=== PATIENT | male | born 1945 | race Caucasian/White ===

== ENCOUNTER 2021-06-02 09:05 | Outpatient (REF) | payer MEDICARE, SELFPAY ==
--- NOTE | ~2021-06-02 | CT_ITS ---
EXAMINATION: CT SINUS WITHOUT CONTRAST CLINICAL INFORMATION: Deviated nasal septum. COMPARISON: CT sinus exam 08/05/2018. TECHNIQUE: 1.5 minutes thin axial and reformatted 2.0 mm thin sagittal and coronal images of sinuses were obtained. This CT examination was performed using dose optimization techniques as appropriate, variously including the following: *Automated exposure control *Adjustment of mA and/or kV according to patient size (this includes techniques or standardized protocols for targeted exams where dose is matched to indication/reason for exam; i.e. extremities or head) *Use of iterative reconstruction technique DLP: 97 mGy-cm. FINDINGS: FRONTAL SINUSES AND DRAINAGE PATHWAYS: There is diffuse mucoperiosteal thickening bilateral frontal sinuses. The drainage pathways are obstructed from mucosal periosteal thickening. MAXILLARY SINUSES AND DRAINAGE PATHWAYS: There is diffuse mucoperiosteal thickening bilateral maxillary sinuses. The ostiomeatal complex is obstructed from mucosal thickening. The bony sinus simpson are intact. ETHMOID SINUSES: There is scattered mucoperiosteal thickening of the bilateral ethmoid sinuses. The ethmoid roofs are symmetric, with olfactory fossa depth of 0.36 on the right and 0.4 on the left. SPHENOID SINUSES AND DRAINAGE PATHWAYS: There is mild mucoperiosteal thickening of the sphenoid sinuses. Bilateral sphenoethmoidal recesses are partially obstructed, especially on the left from mucosal thickening. The carotid canals are covered by bone. NASAL CAVITY/NASOPHARYNX: The nasal cavity is clear. There is no nasal septal deviation/spurring. The nasopharynx is symmetric. ADDITIONAL RELEVANT FINDINGS: The upper mandibular teeth are barely visible, edentulous. The TMJs articulate normally. The orbits and skull base soft tissues are unremarkable. The middle ear cavities and mastoid air cells are clear. Limited evaluation demonstrates no acute intracranial findings. CT/CT sinus wo con IMPRESSION: Chronic pansinusitis with partially obstructed drainage pathways. No bony abnormality involving the sinuses. The mastoid sinuses are clear.
== END 2021-06-02 09:06 | disposition home or self-care (01) ==
LOC: HO.CT 09:05
PROVIDERS: PCP Internal Medicine; Visit Provider Otolaryngology
DX: J33.9 Nasal polyp, unspecified (principal)
CPT/HCPCS: 70486